=== PATIENT | female | born 1975 | race Caucasian/White ===

== ENCOUNTER 2017-10-17 10:53 | Emergency (ER) | payer MEDICAID ==
[2017-10-17] MEDS: ALBUTEROL 0.083% (NEB) 2.5 MG/3 ML AMP NEB (12:26)
[2017-10-17] MEDS: IPRATROPIUM (NEB) 0.5 MG/2.5 ML AMP NEB (12:26)
[2017-10-17] MEDS: predniSONE 20 MG TAB PO (12:28)
== END 2017-10-17 13:58 | disposition home or self-care (01) ==
LOC: FTE 10:53
DX: J06.9 Acute upper respiratory infection, unspecified (principal)
CPT/HCPCS: 71045; 94664; 99284-25

== ENCOUNTER 2017-11-05 09:08 | Emergency (ER) | payer MEDICAID ==
[2017-11-05] MEDS: morphine 4 MG/ML VIAL IV (11:22)
[2017-11-05] MEDS: ONDANSETRON 4 MG INJ IV (11:23)
[2017-11-05 11:35] LABS: ADD MAN DIFF? NO
[2017-11-05 11:37] LABS: BASOPHILS % 0.2 % (0.0-2.0); EOSINOPHILS # 0.2 10^3/ul (0.0-0.5); HEMATOCRIT 38.9 % (37.0-47.0); HEMOGLOBIN 13.7 g/dl (12.0-16.0); LYMPHOCYTES # 2.6 10^3/ul (0.8-2.9); LYMPHOCYTES % 28.8 % (15.0-51.0); MEAN CORPUSCULAR HEMOGLOBIN 32.9 pg (29.0-33.0); MEAN CORPUSCULAR HGB CONC 35.2 g/dl (32.0-37.0); MEAN CORPUSCULAR VOLUME 93.3 fl (82.0-101.0); MEAN PLATELET VOLUME 9.4 fl (7.4-10.4); MONOCYTE # 0.6 10^3/ul (0.3-0.9); MONOCYTES % 6.5 % (0.0-11.0); NEUTROPHIL # 5.6 10^3/ul (1.6-7.5); NEUTROPHILS % 62.3 % (39.0-77.0); PLATELET COUNT 281 10^3/UL (140-415); RED BLOOD COUNT 4.17 10^6/ul (4.20-5.40); RED CELL DISTRIBUTION WIDTH 11.9 % (11.5-14.5)
[2017-11-05 11:43] LABS: ADD UMIC NO; UR ASCORBIC ACID 40 mg/dL (NEGATIVE); UR BACTERIA FEW /HPF (NONE SEEN); UR BILIRUBIN (Dip) NEGATIVE (NEGATIVE); UR BLOOD (Dip) NEGATIVE (NEGATIVE); UR CLARITY SLIGHTLY CLOUDY (CLEAR); UR COLOR YELLOW (YELLOW); UR GLUCOSE (Dip) NEGATIVE (NEGATIVE); UR KETONES (Dip) NEGATIVE (NEGATIVE); UR LEUKOCYTE ESTERASE (Dip) NEGATIVE Leu/ul (NEGATIVE); UR NITRITE (Dip) NEGATIVE (NEGATIVE); UR RBC 1 /HPF (0-5); UR SPECIFIC GRAVITY (Dip) 1.023 (1.003-1.030); UR SQUAMOUS EPITHELIAL CELL FEW /HPF (FEW); UR TOTAL PROTEIN (Dip) NEGATIVE (NEGATIVE); UR UROBILINOGEN (Dip) 1+ mg/dL (NEGATIVE); UR WBC 1 /HPF (0-5)
[2017-11-05 11:53] LABS: ALANINE AMINOTRANSFERASE 34 IU/L (13-69); ALKALINE PHOSPHATASE 105 IU/L (42-121); ANION GAP 16 (8-16); ASPARTATE AMINO TRANSFERASE 23 IU/L (15-46); BILIRUBIN,INDIRECT 0.1 mg/dl (0-1.1); BILIRUBIN,TOTAL 0.1 mg/dl (0.2-1.3); BLOOD UREA NITROGEN 14 mg/dl (7-20); CALCIUM 9.6 mg/dl (8.4-10.2); CARBON DIOXIDE 25 mmol/L (21-31); CHLORIDE 104 mmol/L (97-110); CREATININE 0.61 mg/dl (0.44-1.00); GLUCOSE 130 mg/dl (70-220); LIPASE 100 U/L (23-300); POTASSIUM 3.9 mmol/L (3.5-5.1); SODIUM 141 mmol/L (135-144)
== END 2017-11-05 12:49 | disposition home or self-care (01) ==
LOC: FTE 09:08
DX: K80.70 Calculus of gallbladder and bile duct without cholecystitis without obstruction (principal); R06.02 Shortness of breath
CPT/HCPCS: 36415; 71045; 76705; 80053; 81001; 81003; 83690; 85025; 96374; 96375; 99285-25

== ENCOUNTER 2018-11-27 08:51 | Emergency (ER) | payer MEDICAID | END 2018-11-27 10:22 | disposition home or self-care (01) | LOC: FTE 08:51 | DX: J03.90 Acute tonsillitis, unspecified (principal); H60.92 Unspecified otitis externa, left ear | CPT/HCPCS: 99283; Z7502 ==